=== PATIENT | male | born 1955 | race Caucasian/White ===

== ENCOUNTER 2017-04-13 15:09 | Emergency (ER) | payer SELFPAY ==
[~2017-04-13] VITALS: Ht 172.7 cm; Wt 100.4 kg
[2017-04-13 15:25] VITALS: BP 150/88; PULSE 78; RESP 16; TEMP 98.7; O2SAT 97
[2017-04-13 15:53] LABS: GLUCOSE,URINE NEG (NEG); KETONE, URINE NEG (NEG); NITRITE,URINE NEG (NEG)
[2017-04-13 15:57] LABS: BLOOD, URINE TRACE (NEG)
[2017-04-13 15:58] LABS: URINE COLOR YELLOW (YELLW/STRAW)
[2017-04-13 15:59] LABS: COMMENT (UR) CULT NOT INDICATED; CULTURE IF INDICATED CULT NOT INDICATED; RBC, URINE 0-3 /hpf (0-3); SQUAMOUS EPITHELIAL CELL URINE 0-5 /hpf (0-5)
--- NOTE | 2017-04-13 16:24 | PD ---
HPI Chief Complaint: Complaint Time Seen by Provider: 16:08 Travel History International Travel<30 days: No Contact w/Intl Traveler<30days: No Traveled to known affect area: No History of Present Illness HPI Patient is a 61-year-old male presents emergency department for evaluation of dribbling urine, urgency defecate and urgency to urinate. The patient states that 15 years ago he did have prostate problems and was seen urologist at that time but has not seen a urologist since. Patient denies any weight loss back pain abdominal pain nausea vomiting diarrhea blood in the stool blood in the urine or constipation. States symptoms been going on for the past few weeks and rapidly worsening. Context as above, associated signs symptoms as above. PFSH Past Medical History Inguinal Hernia: Yes (umbilical) Influenza Vaccination: Yes Past Surgical History Appendectomy: Yes Social History Alcohol Use: Yes (occas) Tobacco Use: No Substance Use: No Allergies-Medications (Allergen,Severity, Reaction): Coded Allergies: Sulfa (Sulfonamide Antibiotics) (Verified Allergy, Intermediate, rash, ) Reported Meds & Prescriptions Reported Meds & Active Scripts Active Flomax (Tamsulosin HCl) 0.4 Mg Cap 0.4 Mg PO HS Review of Systems Except as stated in HPI: all other systems reviewed are Neg Physical Exam Narrative GENERAL: Well-developed well-nourished, no obvious distress. SKIN: Focused skin assessment warm/dry. HEAD: Atraumatic. Normocephalic. EYES: Pupils equal and round. No scleral icterus. No injection or drainage. ENT: No nasal bleeding or discharge. Mucous membranes pink and moist. NECK: Trachea midline. No JVD. CARDIOVASCULAR: Regular rate and rhythm. No murmur appreciated. RESPIRATORY: No accessory muscle use. Clear to auscultation. Breath sounds equal bilaterally. GASTROINTESTINAL: Abdomen soft, non-tender, nondistended. Hepatic and splenic margins not palpable. Rectal exam shows a prostate with a left-sided prostate mass which posterior, irregular probably 2 cm x 2 cm 2 cm. MUSCULOSKELETAL: No obvious deformities. No clubbing. No cyanosis. No edema. NEUROLOGICAL: Awake and alert. No obvious cranial nerve deficits. Motor grossly within normal limits. Normal speech. PSYCHIATRIC: Appropriate mood and affect; insight and judgment normal. Data Data Last Documented VS Vital Signs Date Time Temp Pulse Resp B/P (MAP) Pulse Ox O2 Delivery O2 Flow Rate FiO2 10/13/17 15:25 98.7 78 16 150/88 (108) 97 Orders Orders Urinalysis - C+S If Indicated (04/13/17 15:41) Ed Poc Ultrasound (04/13/17 ) Ed Discharge Order (04/13/17 16:43) Mandatory Outpatient Referral (04/13/17 16:46) Labs Laboratory Tests Test 04/13/17 15:45 Urine Color YELLOW Urine Turbidity SLIGHT Urine pH 6.0 Urine Specific [place] 1.025 Urine Protein NEG mg/dL Urine Glucose (UA) NEG mg/dL Urine Ketones NEG mg/dL Urine Occult Blood TRACE Urine Nitrite NEG Urine Bilirubin NEG Urine Leukocyte Esterase NEG Urine RBC 0-3 /hpf Urine Squamous Epithelial Cells 0-5 /hpf Microscopic Urinalysis Comment CULT NOT INDICATED MDM Medical Decision Making Medical Screen Exam Complete: Yes Emergency Medical Condition: Yes Differential Diagnosis Prostate mass, prostate cancer, urinary retention, BPH. Narrative Course Patient roomed emergency department, post void residual was less than 200 cc by ultrasound. Discussed with him at length the prostate mass and recommended starting Flomax. The patient was also discussed with Dr. Ventura who recommended outpatient follow-up. I agree. The patient was discussed with case management the patient is part of [place] different [place]ing [place] well. There is no medical emergency here. I discussed with the importance of need for follow-up for biopsy of his prostate and he verbalized understanding and agreement. He will also follow-up with his local hospital patient assistance program. Discussed return to ED criteria. He is stable for discharge. Procedures Procedure Narrative Bedside ultrasound bladder: Transabdominal views obtained of the bladder which shows a postvoid residual of 175-200 cc of urine. Diagnosis Primary Impression: Prostate hypertrophy Additional Impression: Prostate mass Referrals: Guankaito Ventura DO Patient Assistance Program Med/Other Pt SpecificInfo: Prescription(s) given Scripts Tamsulosin (Flomax) 0.4 Mg Cap 0.4 MG PO HS for Manage Prostate Problems, #30 CAP 1 Refill Prov: Saurabh Fonseca MD 04/13/17 Disposition: 01 DISCHARGE HOME Condition: Stable Saurabh Fonseca MD Apr 13, 2017 16:23
[2017-04-13] MEDS ORDERED: TAMS5CAP PO (16:43)
== END 2017-04-13 17:17 | disposition home or self-care (01) ==
LOC: PHED 15:09
DX: N40.1 Benign prostatic hyperplasia with lower urinary tract symptoms (principal); R35.0 Frequency of micturition; N42.9 Disorder of prostate, unspecified
CPT/HCPCS: 81001; 99284

== ENCOUNTER 2017-04-28 11:24 | Emergency (ER) | payer OTHER ==
[~2017-04-28] VITALS: Ht 172.7 cm; Wt 101.3 kg
[~2017-04-28 11:24] MED LIST: TAMS5CAP PO
[2017-04-28 11:36] VITALS: BP 164/81; PULSE 64; RESP 16; TEMP 97.9; O2SAT 96
[2017-04-28 12:08] LABS: BILIRUBIN, URINE NEG (NEG); BLOOD, URINE TRACE (NEG); GLUCOSE,URINE NEG (NEG); KETONE, URINE NEG (NEG); NITRITE,URINE NEG (NEG); URINE LEUKOCYTE ESTERASE NEG (NEG)
[2017-04-28 12:13] LABS: URINE COLOR YELLOW (YELLW/STRAW)
[2017-04-28 12:14] LABS: RBC, URINE 0-3 /hpf (0-3)
--- NOTE | 2017-04-28 12:22 | PD ---
HPI Chief Complaint: Complaint Time Seen by Provider: 12:00 Travel History International Travel<30 days: No Contact w/Intl Traveler<30days: No Traveled to known affect area: No History of Present Illness HPI 61-year-old male complains of decreasing urine output and dysuria. Patient was seen in emergency room 2 weeks ago with urinary urgency and trouble urinating. Rectal exam showed prostatic mass. Ultrasound 2 weeks ago showed post voided residual around 175-200 cc of urine. Patient was advised to follow-up with urologist. Patient trying to get urologist referral. Patient denies any fever. Patient denies any back pain. PFSH Past Medical History Medical History: Denies Significant Hx Inguinal Hernia: Yes (umbilical) Immunizations Current: Yes Past Surgical History Appendectomy: Yes Other Surgery: Yes (HERNIA REPAIRS X 2) Social History Alcohol Use: Yes (RARE) Tobacco Use: No (NEVER) Substance Use: No Allergies-Medications (Allergen,Severity, Reaction): Coded Allergies: Sulfa (Sulfonamide Antibiotics) (Verified Allergy, Intermediate, rash, ) Reported Meds & Prescriptions Reported Meds & Active Scripts Active Flomax (Tamsulosin HCl) 0.4 Mg Cap 0.4 Mg PO HS Review of Systems General / Constitutional: No: Fever Eyes: No: Visual changes HENT: No: Headaches Cardiovascular: No: Chest Pain or Discomfort Respiratory: No: Shortness of Breath Gastrointestinal: No: Abdominal Pain Genitourinary: Positive: Urgency, Dysuria Musculoskeletal: No: Pain Skin: No Rash Neurologic: No: Weakness Psychiatric: No: Depression Endocrine: No: Polydipsia Hematologic/Lymphatic: No: Easy Bruising Physical Exam Narrative GENERAL: Well-nourished, well-developed patient. SKIN: Focused skin assessment warm/dry. HEAD: Normocephalic. EYES: No scleral icterus. No injection or drainage. NECK: Supple, trachea midline. No JVD or lymphadenopathy. CARDIOVASCULAR: Regular rate and rhythm without murmurs, gallops, or rubs. RESPIRATORY: Breath sounds equal bilaterally. No accessory muscle use. GASTROINTESTINAL: Abdomen soft, non-tender, nondistended. MUSCULOSKELETAL: No cyanosis, or edema. BACK: Nontender without obvious deformity. No CVA tenderness. Data Data Last Documented VS Vital Signs Date Time Temp Pulse Resp B/P (MAP) Pulse Ox O2 Delivery O2 Flow Rate FiO2 04/28/17 11:36 97.9 64 16 164/81 (108) 96 Orders Orders Urinalysis - C+S If Indicated (04/28/17 11:55) Urinary Catheter Insert/Apply (04/28/17 12:11) Complete Blood Count With Diff (04/28/17 12:26) Comprehensive Metabolic Panel (04/28/17 12:26) Prothrombin Time / Inr (Pt) (04/28/17 12:26) Act Partial Throm Time (Ptt) (04/28/17 12:26) Ed Discharge Order (04/28/17 12:27) Labs Laboratory Tests Test 04/28/17 11:45 Urine Collection Type CLEAN CATCH Urine Color YELLOW Urine Turbidity CLEAR Urine pH 7.0 Urine Specific [place] 1.025 Urine Protein NEG mg/dL Urine Glucose (UA) NEG mg/dL Urine Ketones NEG mg/dL Urine Occult Blood TRACE Urine Nitrite NEG Urine Bilirubin NEG Urine Leukocyte Esterase NEG Urine RBC 0-3 /hpf Microscopic Urinalysis Comment CULT NOT INDICATED MDM Medical Decision Making Medical Screen Exam Complete: Yes Emergency Medical Condition: Yes Interpretation(s) UA is negative Differential Diagnosis Differential diagnosis including urethritis, UTI, urinary retention. Narrative Course 61-year-old male with dysuria and urgency. History of prostate mass. Murphy catheter inserted. Patient has 600 cc of clear yellow urine. Leg bag applied. Diagnosis Primary Impression: Urinary retention Additional Impression: Prostate mass Patient Instructions: General Instructions Additional Instructions: Follow-up with urologist. Med/Other Pt SpecificInfo: No Change to Meds Disposition: 01 DISCHARGE HOME Condition: Stable Dorian Neff MD Apr 28, 2017 12:22
[2017-04-28 12:38] LABS: AUTOMATED NEUTROPHIL # 5.6 TH/MM3 (1.8-7.7); BASOPHIL # 0.1 TH/MM3 (0-0.2); BASOPHIL % 0.8 % (0.0-2.0); EOSINOPHIL # 0.3 TH/MM3 (0-0.4); EOSINOPHIL % 3.6 % (0.0-4.0); HEMATOCRIT 43.7 % (39.0-51.0); HEMOGLOBIN 14.4 GM/DL (13.0-17.0); LYMPH % 15.8 % (9.0-44.0); LYMPHOCYTE # 1.2 TH/MM3 (1.0-4.8); MEAN CELL VOLUME 87.7 FL (80.0-100.0); MEAN PLATELET VOLUME 7.6 FL (7.0-11.0); MONO % 7.7 % (0.0-8.0); MONOCYTE # 0.6 TH/MM3 (0-0.9); NEUT % 72.1 % (16.0-70.0); PLATELET COUNT 222 TH/MM3 (150-450); RED BLOOD COUNT 4.98 MIL/MM3 (4.50-5.90); RED CELL DISTRIBUTION WIDTH 12.9 % (11.6-17.2); WHITE BLOOD COUNT 7.8 TH/MM3 (4.0-11.0)
[2017-04-28 12:46] LABS: CHLORIDE 108 MEQ/L (98-107); SODIUM (NA) 141 MEQ/L (136-145)
[2017-04-28 12:49] LABS: CALCIUM 8.4 MG/DL (8.5-10.1)
[2017-04-28 12:50] LABS: ALBUMIN 3.5 GM/DL (3.4-5.0); BICARBONATE 26.1 MEQ/L (21.0-32.0); BLOOD UREA NITROGEN 27 MG/DL (7-18); GLUCOSE,RANDOM 96 MG/DL (74-106)
[2017-04-28 12:53] LABS: ALT (GPT) 23 U/L (12-78); AST (GOT) 16 U/L (15-37); CREATININE 0.93 MG/DL (0.60-1.30); GLOMERULAR FILTRATION RATE 83 ML/MIN (>89)
[2017-04-28 12:54] LABS: TOTAL BILIRUBIN ADULT 0.7 MG/DL (0.2-1.0); TOTAL PROTEIN 7.3 GM/DL (6.4-8.2)
[2017-04-28 12:56] LABS: ALKALINE PHOSPHATASE 64 U/L (45-117)
[2017-04-28 13:01] LABS: PROTHROMBIN TIME - PATIENT 10.5 SEC (9.8-11.6)
[2017-04-28 13:15] VITALS: BP 153/62; PULSE 62; RESP 16; O2SAT 97
== END 2017-04-28 13:26 | disposition home or self-care (01) ==
LOC: PHED 11:24
DX: R33.9 Retention of urine, unspecified (principal); N42.89 Other specified disorders of prostate; Z88.2 Allergy status to sulfonamides; Z79.899 Other long term (current) drug therapy
CPT/HCPCS: 51702; 80053; 81001; 85025; 85610; 85730

== ENCOUNTER 2017-05-04 11:06 | Emergency (ER) | payer OTHER ==
[~2017-05-04] VITALS: Ht 172.7 cm; Wt 98.8 kg
[2017-05-04 11:07] VITALS: BP 147/85; PULSE 93; RESP 16; TEMP 97.5; O2SAT 97
--- NOTE | 2017-05-04 12:40 | PD ---
HPI Chief Complaint: Complaint Time Seen by Provider: 12:24 Travel History International Travel<30 days: No Contact w/Intl Traveler<30days: No Traveled to known affect area: No PFSH Past Medical History Inguinal Hernia: Yes (umbilical) Reproductive: Yes (growth on his prostate) Immunizations Current: Yes Past Surgical History Appendectomy: Yes Other Surgery: Yes (HERNIA REPAIRS X 2) Social History Alcohol Use: Yes (RARE) Tobacco Use: No (NEVER) Substance Use: No Allergies-Medications (Allergen,Severity, Reaction): Coded Allergies: Sulfa (Sulfonamide Antibiotics) (Verified Allergy, Intermediate, rash, 05/04/17) Reported Meds & Prescriptions Reported Meds & Active Scripts Active Flomax (Tamsulosin HCl) 0.4 Mg Cap 0.4 Mg PO HS Data Data Last Documented VS Vital Signs Date Time Temp Pulse Resp B/P (MAP) Pulse Ox O2 Delivery O2 Flow Rate FiO2 05/04/17 11:07 97.5 93 16 147/85 (105) 97 MDM Medical Decision Making Medical Screen Exam Complete: Yes Emergency Medical Condition: Yes Differential Diagnosis Urinary retention, prostate mass, UTI Narrative Course 61-year-old male here with Murphy catheter in place requesting possibility of catheter removal. He was seen approximately a month ago and diagnosed with urinary retention likely caused by prostate mass which was found on exam. A Murphy catheter was placed at that time and he was referred to urology for follow -up. Due to patient[place] follow-up has been difficult. Case management spoke with him today in the ER. He denies fever/chills, abdominal pain. On exam his abdomen is soft and nontender. His Murphy catheter and leg bag have clear yellow urine. I discussed with patient my hesitancy to remove his catheter without scheduled follow-up. I believe it will cause urinary retention again and he will be back into the hospital for another Murphy. He agrees to keep the Murphy in place and a weight follow-up with urology. Return precautions discussed. Diagnosis Primary Impression: Urinary retention Referrals: Guanakito Ventura DO Additional Instructions: Keep the Murphy in place as we discussed. Return to emergency department if he developed fever, chills, abdominal pain. Fill out and symmetric the paperwork required for follow-up with urology Disposition: 01 DISCHARGE HOME Condition: Stable Leedy,Lorena N DESK DIRECTOR May 04, 2017 12:40
== END 2017-05-04 12:59 | disposition home or self-care (01) ==
LOC: PHED 11:06 → PHEFT 12:59
DX: R33.9 Retention of urine, unspecified (principal)
CPT/HCPCS: 99281

== ENCOUNTER 2017-05-08 00:08 | Emergency (ER) | payer SELFPAY ==
[~2017-05-08] VITALS: Ht 172.7 cm; Wt 98.0 kg
[2017-05-08 00:13] VITALS: BP 163/77; PULSE 107; RESP 20; TEMP 97.4; O2SAT 98
[2017-05-08 02:08] LABS: BLOOD, URINE LARGE (NEG); GLUCOSE,URINE NEG (NEG); KETONE, URINE NEG (NEG); NITRITE,URINE POS (NEG); PH, URINE 5.5 (5.0-8.5)
[2017-05-08 02:17] LABS: POTASSIUM 3.8 MEQ/L (3.5-5.1)
[2017-05-08 02:21] LABS: BICARBONATE 26.6 MEQ/L (21.0-32.0)
[2017-05-08 02:21] LABS: URINE COLOR YELLOW (YELLW/STRAW)
[2017-05-08 02:22] LABS: MUCUS URINE MOD /lpf (OCC); RBC, URINE INNUM /hpf (0-3)
[2017-05-08 02:23] LABS: BACTERIA, URINE MOD /hpf; COMMENT (UR) CULTURE INDICATED; CULTURE IF INDICATED CULTURE INDICATED; SQUAMOUS EPITHELIAL CELL URINE 0-5 /hpf (0-5)
[2017-05-08 02:34] VITALS: BP 146/73; PULSE 96; RESP 18; O2SAT 98
[2017-05-08] MEDS ORDERED: CIPR-9 PO (02:50)
--- NOTE | 2017-05-08 02:51 | PD ---
HPI Chief Complaint: Complaint Time Seen by Provider: 01:23 Travel History International Travel<30 days: No Contact w/Intl Traveler<30days: No Traveled to known affect area: No History of Present Illness HPI 61-year-old male presents to the emergency department for possible urinary bladder catheter malfunction. Patient has been seen numerous times for same and has had catheter changed twice before. Patient denies fever chills. Patient has noted decreased urine output. Patient is in the process of being referred to outpatient neurology. Patient denies any gross hematuria. Patient denies other concerns or complaints. Patient is not on any blood thinning agents. [facility] Past Medical History Narrative Medical Prostatic hypertrophy prostate mass urinary retention appendectomy alcohol use nursing notes reviewed Diminished Hearing: No Inguinal Hernia: Yes (umbilical) Reproductive: Yes (growth on his prostate) Immunizations Current: Yes Tetanus Vaccination: < 5 Years Influenza Vaccination: Yes Past Surgical History Appendectomy: Yes Other Surgery: Yes (HERNIA REPAIRS X 2) Social History Alcohol Use: Yes (RARE) Tobacco Use: No (NEVER) Substance Use: No Allergies-Medications (Allergen,Severity, Reaction): Coded Allergies: Sulfa (Sulfonamide Antibiotics) (Verified Allergy, Intermediate, rash, 05/08/17) Reported Meds & Prescriptions Reported Meds & Active Scripts Active Cipro (Ciprofloxacin HCl) 500 Mg Tab 500 Mg PO BID 7 Days Flomax (Tamsulosin HCl) 0.4 Mg Cap 0.4 Mg PO HS Review of Systems Except as stated in HPI: all other systems reviewed are Neg Physical Exam Narrative GENERAL: Well-developed well-nourished male in no acute distress no respiratory distress SKIN: Warm and dry. HEAD: Normocephalic. EYES: No scleral icterus. No injection or drainage. NECK: Supple, trachea midline. No JVD or lymphadenopathy. CARDIOVASCULAR: Regular rate and rhythm without murmurs, gallops, or rubs. RESPIRATORY: Breath sounds equal bilaterally. No accessory muscle use. GASTROINTESTINAL: Abdomen soft, non-tender, mildly distended. MUSCULOSKELETAL: No cyanosis, or edema. : Circumcised male with urinary catheter in place without urine identified to be collected in the collection bag BACK: Nontender without obvious deformity. No CVA tenderness. Data Data Last Documented VS Vital Signs Date Time Temp Pulse Resp B/P (MAP) Pulse Ox O2 Delivery O2 Flow Rate FiO2 05/08/17 03:41 76 18 97 05/08/17 03:36 Room Air 05/08/17 00:13 97.4 Orders Orders Urinalysis - C+S If Indicated (05/08/17 01:23) Basic Metabolic Panel (Bmp) (05/08/17 01:23) Urinary Catheter - Remove (05/08/17 01:23) Urinary Catheter Insert/Apply (05/08/17 01:23) Urine Culture (05/08/17 01:25) Ciprofloxacin (Cipro) (05/08/17 03:00) Sodium Chlor 0.9% 1000 Ml Inj (Ns 1000 M (05/08/17 03:00) Ketorolac Inj (Toradol Inj) (05/08/17 03:00) Ed Discharge Order (05/08/17 02:51) Labs Laboratory Tests Test 05/08/17 01:25 05/08/17 01:40 Urine Color YELLOW Urine Turbidity MOD Urine pH 5.5 Urine Specific [place] 1.025 Urine Protein 100 mg/dL Urine Glucose (UA) NEG mg/dL Urine Ketones NEG mg/dL Urine Occult Blood LARGE Urine Nitrite POS Urine Bilirubin NEG Urine Leukocyte Esterase SMALL Urine RBC INNUM /hpf Urine WBC 6-8 /hpf Urine Squamous Epithelial Cells 0-5 /hpf Urine Amorphous Sediment MOD Urine Bacteria MOD /hpf Urine Mucus MOD /lpf Microscopic Urinalysis Comment CULTURE INDICATED Blood Urea Nitrogen 26 MG/DL Creatinine 1.10 MG/DL Random Glucose 126 MG/DL Calcium Level 9.2 MG/DL Sodium Level 136 MEQ/L Potassium Level 3.8 MEQ/L Chloride Level 103 MEQ/L Carbon Dioxide Level 26.6 MEQ/L Anion Gap 6 MEQ/L Estimat Glomerular Filtration Rate 68 ML/MIN [facility] Medical Decision Making Medical Screen Exam Complete: Yes Emergency Medical Condition: Yes Medical Record Reviewed: Yes Interpretation(s) Urinalysis: Positive for nitrites leukocyte Estrace act. White blood cells clumped white blood cells and cultures indicated Metabolic panel: Grossly within normal limits creatinine is within normal range potassium is within normal range Differential Diagnosis Urinary catheter malfunction urinary retention UTI renal insufficiency electrolyte disturbance Narrative Course Urinary catheter irrigated without success catheter removed and urinary catheter replaced with good urine output Urine specimen sent for urinalysis Abnormal urinalysis patient given first dose of antibiotic in the emergency department and prescription for outpatient antibiotic therapy and encouraged to follow-up with urologist Diagnosis Primary Impression: Urinary catheter change required Additional Impressions: UTI (urinary tract infection) Urinary retention Referrals: Urologist call for appointment Patient Instructions: General Instructions Additional Instructions: Follow-up with urologist Complete course of antibiotic as prescribed Increase fluid hydration Patient acetaminophen/Tylenol as needed for fever 100.4F or greater Return to the emergency for free concerns or change in condition Med/Other Pt SpecificInfo: Prescription(s) given Scripts Ciprofloxacin (Cipro) 500 Mg Tab 500 MG PO BID for Infection for 7 Days, #14 TAB 0 Refills Prov: Sigrid Driscoll MD 05/08/17 Disposition: 01 DISCHARGE HOME Condition: Stable Sigrid Driscoll MD May 08, 2017 02:51
[2017-05-08] MEDS ORDERED: SODIUM CHLOR 0.9% 1000 ML INJ 1,000 ML IV ONE (03:00)
[2017-05-08] MEDS ORDERED: KETOROLAC TROMETHAMINE 30 MG/ML (IVP) VIAL IV PUSH ONE (03:00)
[2017-05-08] MEDS ORDERED: CIPROFLOXACIN 500 MG TAB PO ONE (03:00)
[2017-05-08 03:36] VITALS: BP 148/76; PULSE 94; RESP 18; O2SAT 98
== END 2017-05-08 03:43 | disposition home or self-care (01) ==
LOC: PHED 00:08
DX: T83.511A Infection and inflammatory reaction due to indwelling urethral catheter, initial encounter (principal); N39.0 Urinary tract infection, site not specified; B96.5 Pseudomonas (aeruginosa) (mallei) (pseudomallei) as the cause of diseases classified elsewhere; B96.89 Other specified bacterial agents as the cause of diseases classified elsewhere
CPT/HCPCS: 51702; 80048; 81001; 87077; 87086; 87186; 96361; 96374; 99284; J1885; J7030